=== PATIENT | female | born 2000 | race Hispanic/Latino ===

== ENCOUNTER 2022-10-21 13:58 | Inpatient (IN) | payer OTHER ==
[~2022-10-21 13:58] MED LIST: Bupivacaine 0.25% HCL 30 ML VIAL ONE; Bupivacaine/Epinephrine 0.5% 10 ML VIAL ONE; Lidocaine 2% MPF 10 ML AMP (For Epidural Use) ONE
[2022-10-21 20:40] VITALS: BMI 28.1
[2022-10-21] MEDS ORDERED: Promethazine HCl 25 MG/ML VIAL IM PRN (21:08)
[2022-10-21] MEDS ORDERED: Carboprost 250 MCG/ML AMP IM PRN (21:08)
[2022-10-21] MEDS ORDERED: Methylergonovine 0.2 MG/ML VIAL IM PRN (21:08)
[2022-10-21] MEDS ORDERED: Lidocaine 1% (PF) 30 ML VIAL SC PRN (21:08)
[2022-10-21] MEDS ORDERED: Ondansetron PF 4 MG/2 ML Vial IVP PRN (21:08)
[2022-10-21] MEDS ORDERED: hydrALAZINE 20 MG/ML VIAL SLOW IVP PRN (21:08)
[2022-10-21] MEDS ORDERED: Misoprostol 200 MCG TAB PR PRN (21:08)
[2022-10-21] MEDS ORDERED: NS w/ Oxytocin 30 units 500 ML IV SCH ×2 (21:15)
[2022-10-21 21:37] LABS: Hemoglobin 9.4 g/dL (12.0-15.5); Mean Corpuscular HGB CONC 33.5 g/dL (32.0-36.0); Mean Corpuscular Hemoglobin 26.8 pg (27.0-33.0); Mean Corpuscular Volume 80.1 fl (81.6-98.3); Mean Platelet Volume 11.2 fl (7.4-10.4); Platelet Count 181 10x3/uL (150-450); RBC Distribution Width 13.4 % (11.5-14.5); Red Blood Cell (RBC) Count 3.51 10x6/uL (3.90-5.03); White Blood Cell (WBC) Count 6.2 10x3/uL (3.5-10.5)
[2022-10-21 22:19] LABS: HBSAg Index 0.18 S/CO (0-0.99); Hep B Surf Ag Non-Reactive S/CO (NonReactive)
[2022-10-21 22:20] LABS: Syphilis Antibody Nonreactive (Nonreactive); Syphilis Antibody Index 0.02 S/CO (<1.00 Non-Reactive)
[2022-10-22] MEDS: Lactated Ringer's 1,000 ML IV SCH (07:06)
[2022-10-22] MEDS ORDERED: Fentanyl 2 mcg/Bup 0.1% Cadd 100 ML ONE (10:24)
[2022-10-22] MEDS ORDERED: Naloxone HCl 0.4 mg/ml Vial IVP PRN ×4 (11:27→23:58)
[2022-10-22] MEDS ORDERED: Moisturizing Cream (Eucerin) 113 GM JAR TOP PRN ×2 (11:27→23:58)
[2022-10-22] MEDS ORDERED: Lactated Ringer's 500 ML IV PRN (11:27)
[2022-10-22] MEDS ORDERED: Promethazine HCl 25 MG/ML VIAL IM PRN ×2 (11:27→23:58)
[2022-10-22] MEDS ORDERED: ePHEDrine Sulfate 50 MG/10 ML VIAL SLOW IVP PRN (11:27)
[2022-10-22] MEDS ORDERED: Acetaminophen 325 MG TAB PO PRN (11:27)
[2022-10-22] MEDS ORDERED: Ondansetron PF 4 MG/2 ML Vial IVP PRN ×2 (11:27→23:58)
[2022-10-22] MEDS ORDERED: diphenhydrAMINE 50 MG/ML VIAL IVP PRN ×2 (11:27→23:58)
[2022-10-22] MEDS ORDERED: Fentanyl 2 mcg/Bupivacaine 0.1% Cassette 100 ML EPIDURAL SCH (11:30)
[2022-10-22] MEDS ORDERED: Communication Order-Pharmacy FS SCH ×2 (11:30→23:45)
[2022-10-22] MEDS ORDERED: Dextrose 5%-Lactated Ringers 1,000 ML IV SCH (19:30)
[2022-10-22] MEDS ORDERED: CEFAZOLIN 2 GM VIAL ONE (23:35)
[2022-10-22] MEDS ORDERED: Azithromycin 500 MG VIAL ONE (23:36)
[2022-10-22] MEDS ORDERED: Clindamycin/D5W 900 mg/50 ml Premix Bag ONE (23:38)
[2022-10-22] MEDS ORDERED: Tranexamic Acid 1,000 MG/10 ML VIAL ONE ×2 (23:42→23:54)
[2022-10-22] MEDS ORDERED: Methylergonovine 0.2 MG/ML VIAL ONE (23:42)
[2022-10-22] MEDS ORDERED: Carboprost 250 MCG/ML AMP ONE (23:42)
[2022-10-22] MEDS ORDERED: Misoprostol 200 MCG TAB ONE ×2 (23:42→23:54)
[2022-10-22] MEDS: SODIUM CHLORIDE IVPB SCH (23:46)
[2022-10-22] MEDS: Ampicillin 2 GM in Sodium Chloride 0.9% 100 ML IVPB SCH (23:46)
[2022-10-22] MEDS: GENTAMICIN IVPB SCH (23:46)
[2022-10-22] MEDS: ADMIXTURE FEE IVPB SCH (23:46)
[2022-10-22] MEDS ORDERED: Ondansetron PF 4 MG/2 ML Vial ONE (23:49)
[2022-10-22] MEDS ORDERED: Dexamethasone 4 mg/ml Vial ONE (23:49)
[2022-10-22] MEDS ORDERED: Oxytocin 10 UNITS/ML VIAL ONE (23:50)
[2022-10-22] MEDS ORDERED: Ketorolac Tromethamine 30 MG/ML VIAL ONE (23:50)
[2022-10-22] MEDS ORDERED: Phenylephrine 40 MG/NS 250 ML 250 ML ONE (23:50)
[2022-10-22] MEDS ORDERED: Meperidine HCl/PF 25 MG/ML VIAL SLOW IVP PRN (23:58)
[2022-10-22] MEDS ORDERED: Naloxone HCl 0.4 mg/ml Vial IV PRN (23:58)
[2022-10-22] MEDS ORDERED: Promethazine HCl 25 MG SUPP PR PRN (23:58)
[2022-10-22] MEDS ORDERED: Fentanyl 100 MCG/2 ML VIAL SLOW IVP PRN (23:58)
[2022-10-22] MEDS ORDERED: Ondansetron HCl/PF 4 MG/2 ML Vial IVP PRN (23:58)
[2022-10-23] MEDS ORDERED: Tranexamic Acid 1,000 MG/10 ML VIAL ONE (00:43)
[2022-10-23 01:06] LABS: pH (Cord, venous) 7.304 (7.250-7.350)
[2022-10-23] MEDS ORDERED: Morphine PF 10 MG/10 ML VIAL ONE (01:20)
[2022-10-23 01:37] LABS: Hemoglobin 9.1 g/dL (12.0-15.5)
[2022-10-23] MEDS ORDERED: Lidocaine 1% (PF) 30 ML VIAL ONE (02:03)
[2022-10-23] MEDS: Clindamycin/D5W 600 MG in Premix Bag 1 BAG IVPB SCH ×4 (02:06→16:19)
[2022-10-23] MEDS ORDERED: Lanolin Ointment 7 GM TUBE TOP PRN (04:22)
[2022-10-23] MEDS ORDERED: Bisacodyl 10 MG SUPP PR PRN (04:22)
[2022-10-23] MEDS ORDERED: hydrALAZINE 20 MG/ML VIAL SLOW IVP PRN (04:22)
[2022-10-23] MEDS ORDERED: Simethicone Chewable 80 MG TAB PO PRN (04:22)
[2022-10-23] MEDS ORDERED: Boostrix 0.5 ML (Tdap) VIAL (>/=7 yrs of age) IM ONE (04:22)
[2022-10-23] MEDS ORDERED: Acetaminophen 325 MG TAB PO PRN (04:22)
[2022-10-23] MEDS: Lactated Ringer's 1,000 ML IV SCH (04:26)
[2022-10-23] MEDS: Ampicillin 2 GM in Sodium Chloride 0.9% 100 ML IVPB SCH ×3 (07:36→18:25)
[2022-10-23] MEDS: Ketorolac Tromethamine 30 MG/ML VIAL IVP SCH ×4 (07:36→23:40)
[2022-10-23] MEDS: Prenatal Vitamin 1 TAB PO SCH (10:01)
[2022-10-23] MEDS: Docusate 100 MG CAP PO SCH ×2 (10:02→20:56)
[2022-10-23] MEDS: Ferrous Sulfate 325 MG TAB PO SCH ×2 (10:02→20:56)
[2022-10-23] MEDS ORDERED: HYDROcodone/Acetaminophen 5/325 mg Tablet PO PRN (11:55)
[2022-10-23 18:54] LABS: Hemoglobin 5.9 g/dL (12.0-15.5); MDiff Complete? YES; Mean Corpuscular HGB CONC 32.8 g/dL (32.0-36.0); Mean Corpuscular Hemoglobin 26.1 pg (27.0-33.0); Mean Corpuscular Volume 79.6 fl (81.6-98.3); Mean Platelet Volume 10.9 fl (7.4-10.4); Platelet Count 131 10x3/uL (150-450); RBC Distribution Width 13.8 % (11.5-14.5); Red Blood Cell (RBC) Count 2.26 10x6/uL (3.90-5.03); White Blood Cell (WBC) Count 11.1 10x3/uL (3.5-10.5)
[2022-10-23 19:20] LABS: Band 6 % (5-11); Lymphocytes 5 % (28-48); Metamyelocyte 2 % (0-0); Monocytes 2 % (0-4); Neutrophil 85 % (31-61)
[2022-10-23 19:21] LABS: Hypochromia SLIGHT = 6-15 cells (100X) (0-5/hpf); Microcytosis SLIGHT = 6-15 cells (100X) (0-5/hpf); Platelet Morphology Comment Appears Decreased
[2022-10-23] MEDS: GENTAMICIN IVPB SCH (23:36)
[2022-10-23] MEDS: SODIUM CHLORIDE IVPB SCH (23:36)
[2022-10-23] MEDS: ADMIXTURE FEE IVPB SCH (23:36)
[2022-10-24] MEDS: Ampicillin 2 GM in Sodium Chloride 0.9% 100 ML IVPB SCH (01:10)
[2022-10-24] MEDS: Clindamycin/D5W 600 MG in Premix Bag 1 BAG IVPB SCH (01:35)
[2022-10-24] MEDS: Ibuprofen 800 MG TAB PO SCH ×3 (06:16→21:51)
[2022-10-24] MEDS: Prenatal Vitamin 1 TAB PO SCH (08:24)
[2022-10-24] MEDS: Docusate 100 MG CAP PO SCH ×2 (08:24→21:51)
[2022-10-24] MEDS: Ferrous Sulfate 325 MG TAB PO SCH ×2 (08:24→21:51)
[2022-10-24 10:48] LABS: Hemoglobin 8.9 g/dL (12.0-15.5); Mean Corpuscular HGB CONC 35.3 g/dL (32.0-36.0); Mean Corpuscular Hemoglobin 28.2 pg (27.0-33.0); Mean Corpuscular Volume 79.7 fl (81.6-98.3); Mean Platelet Volume 11.3 fl (7.4-10.4); Platelet Count 146 10x3/uL (150-450); RBC Distribution Width 14.1 % (11.5-14.5); Red Blood Cell (RBC) Count 3.16 10x6/uL (3.90-5.03); White Blood Cell (WBC) Count 15.3 10x3/uL (3.5-10.5)
[2022-10-24 10:49] LABS: MDiff Complete? YES
[2022-10-24 11:20] LABS: Band 26 % (5-11); Lymphocytes 8 % (28-48); Monocytes 2 % (0-4); Neutrophil 62 % (31-61); Reactive Lymphocytes 2 % (0-10)
[2022-10-24 11:22] LABS: Microcytosis SLIGHT = 6-15 cells (100X) (0-5/hpf); Platelet Morphology Comment Appears Adequate
[2022-10-25 04:12] LABS: #Monocytes 0.7 10x3/uL (0.0-1.1); #Neutrophils 11.5 10x3/uL (1.5-8.4); %Basophils 0.1 % (0.0-2.0); %Lymphocytes 10.7 % (18.0-47.0); %Monocytes 5.2 % (0.0-10.0); Hemoglobin 8.2 g/dL (12.0-15.5); Mean Corpuscular HGB CONC 34.6 g/dL (32.0-36.0); Mean Corpuscular Hemoglobin 27.8 pg (27.0-33.0); Mean Corpuscular Volume 80.3 fl (81.6-98.3); Platelet Count 173 10x3/uL (150-450); RBC Distribution Width 14.6 % (11.5-14.5); Red Blood Cell (RBC) Count 2.95 10x6/uL (3.90-5.03); White Blood Cell (WBC) Count 13.9 10x3/uL (3.5-10.5)
[2022-10-25] MEDS: Ibuprofen 800 MG TAB PO SCH ×2 (05:57→13:29)
[2022-10-25] MEDS: Prenatal Vitamin 1 TAB PO SCH (08:26)
[2022-10-25] MEDS: Docusate 100 MG CAP PO SCH (08:26)
[2022-10-25] MEDS: Ferrous Sulfate 325 MG TAB PO SCH (08:26)
[2022-10-25 11:21] VITALS: BP 108/56; TEMP 98.1
== END 2022-10-25 16:55 | disposition home or self-care (01) | DRG 786 ==
LOC: CSHLD 19:56 → CSHPP 10-23 04:21
PROVIDERS: ADMIT Family Medicine; ATTEND Family Medicine
PROC: 3E033VJ Introduction of Other Hormone into Peripheral Vein, Percutaneous Approach (ICD-10-PCS; 2022-10-22)
PROC: 10907ZC Drainage of Amniotic Fluid, Therapeutic from Products of Conception, Via Natural or Artificial Opening (ICD-10-PCS; 2022-10-22)
PROC: 10H07YZ Insertion of Other Device into Products of Conception, Via Natural or Artificial Opening (ICD-10-PCS; 2022-10-22)
PROC: 10D00Z1 Extraction of Products of Conception, Low, Open Approach (ICD-10-PCS; principal; 2022-10-23)
PROC: 30233N1 Transfusion of Nonautologous Red Blood Cells into Peripheral Vein, Percutaneous Approach (ICD-10-PCS; 2022-10-23)
DX: O34.211 Maternal care for low transverse scar from previous cesarean delivery (principal); O41.1230 Chorioamnionitis, third trimester, not applicable or unspecified; D62 Acute posthemorrhagic anemia; O72.1 Other immediate postpartum hemorrhage; O99.43 Diseases of the circulatory system complicating the puerperium; Z20.822 Contact with and (suspected) exposure to COVID-19; O66.0 Obstructed labor due to shoulder dystocia; O76 Abnormality in fetal heart rate and rhythm complicating labor and delivery; O62.1 Secondary uterine inertia; O32.4XX0 Maternal care for high head at term, not applicable or unspecified; Z37.0 Single live birth; O32.8XX0 Maternal care for other malpresentation of fetus, not applicable or unspecified; Z3A.39 39 weeks gestation of pregnancy; O99.02 Anemia complicating childbirth; I95.9 Hypotension, unspecified; E86.1 Hypovolemia; O99.285 Endocrine, nutritional and metabolic diseases complicating the puerperium
CPT/HCPCS: 36415; 36430; 51702; 82805; 85014; 85018; 85025; 85027; 86780; 86850; 86900; 86901; 87340; 88307; J0290; J1100; J1580; J1885; J2274; J2405; J2590; J3490; P9016; S0020; U0003; U0005

== ENCOUNTER 2022-10-30 10:42 | Inpatient (IN) | payer OTHER ==
[2022-10-30] MEDS ORDERED: Cefepime 2 GM VIAL ONE (11:13)
[2022-10-30 11:27] LABS: #Monocytes 0.7 10x3/uL (0.0-1.1); #Neutrophils 7.9 10x3/uL (1.5-8.4); %Basophils 0.3 % (0.0-2.0); %Eosinophils 0.3 % (0.0-6.0); %Lymphocytes 14.3 % (18.0-47.0); %Monocytes 6.9 % (0.0-10.0); %Neutrophils 77.3 % (40.0-75.0); Hemoglobin 10.9 g/dL (12.0-15.5); Mean Corpuscular HGB CONC 33.7 g/dL (32.0-36.0); Mean Corpuscular Hemoglobin 27.7 pg (27.0-33.0); Mean Platelet Volume 9.7 fl (7.4-10.4); Platelet Count 342 10x3/uL (150-450); RBC Distribution Width 14.4 % (11.5-14.5); Red Blood Cell (RBC) Count 3.94 10x6/uL (3.90-5.03); White Blood Cell (WBC) Count 10.2 10x3/uL (3.5-10.5)
[2022-10-30 11:38] LABS: ALT (SGPT) 14 U/L (8-55); AST (SGOT) 9 U/L (5-30); Albumin 3.4 g/dL (3.5-5.0); Alkaline Phosphatase 134 U/L (40-100); Anion Gap 16 mmol/L (10-20); BUN (Urea Nitrogen) 8 mg/dL (8.4-21.0); Bilirubin, Total 0.5 mg/dL (0.2-1.2); Calc. Creatinine Clearance 0 mL/min (70-130); Calcium 9.2 mg/dL (7.8-10.44); Carbon Dioxide 24 mmol/L (22-29); Chloride 107 mmol/L (98-107); Estimated GFR 107; Globulin 3.8 g/dL (2.4-3.5); Glucose 90 mg/dL (70-105); Potassium 2.7 mmol/L (3.5-5.1); Protein, Total 7.2 g/dL (6.0-8.3); Sodium 144 mmol/L (136-145)
[2022-10-30] MEDS ORDERED: Vancomycin 1 GM VIAL ONE (11:55)
[2022-10-30] MEDS ORDERED: Potassium Chloride 20 MEQ TAB ONE (14:02)
[2022-10-30] MEDS ORDERED: Potassium Chloride 20 MEQ/100 ML PREMIX BAG ONE (14:02)
[2022-10-30] MEDS ORDERED: hydrALAZINE 20 MG/ML VIAL SLOW IVP PRN (14:16)
[2022-10-30] MEDS ORDERED: Ibuprofen 800 MG TAB PO PRN (14:24)
[2022-10-30] MEDS: Ampicillin/Sulbactam 3 GM in Sodium Chloride 0.9% 100 ML IVPB SCH ×2 (18:40→23:46)
[2022-10-30] MEDS: Clindamycin/D5W 900 MG in Premix Bag 1 BAG IVPB SCH (21:58)
[2022-10-30] MEDS: Ferrous Sulfate 325 MG TAB PO SCH (23:29)
[2022-10-31 05:06] LABS: #Monocytes 0.6 10x3/uL (0.0-1.1); #Neutrophils 8.7 10x3/uL (1.5-8.4); %Basophils 0.2 % (0.0-2.0); %Eosinophils 0.2 % (0.0-6.0); %Lymphocytes 14.5 % (18.0-47.0); %Monocytes 5.7 % (0.0-10.0); %Neutrophils 78.5 % (40.0-75.0); Hemoglobin 8.8 g/dL (12.0-15.5); Mean Corpuscular HGB CONC 32.7 g/dL (32.0-36.0); Mean Corpuscular Hemoglobin 27.1 pg (27.0-33.0); Mean Corpuscular Volume 82.8 fl (81.6-98.3); Mean Platelet Volume 9.7 fl (7.4-10.4); Platelet Count 308 10x3/uL (150-450); RBC Distribution Width 14.6 % (11.5-14.5); Red Blood Cell (RBC) Count 3.25 10x6/uL (3.90-5.03)
[2022-10-31] MEDS: Clindamycin/D5W 900 MG in Premix Bag 1 BAG IVPB SCH ×3 (05:42→21:29)
[2022-10-31 05:50] LABS: ALT (SGPT) 9 U/L (8-55); AST (SGOT) 8 U/L (5-30); Albumin 2.4 g/dL (3.5-5.0); Alkaline Phosphatase 103 U/L (40-100); Anion Gap 13 mmol/L (10-20); BUN (Urea Nitrogen) 8 mg/dL (8.4-21.0); Bilirubin, Total 0.4 mg/dL (0.2-1.2); Calc. Creatinine Clearance 0 mL/min (70-130); Calcium 7.9 mg/dL (7.8-10.44); Carbon Dioxide 21 mmol/L (22-29); Chloride 112 mmol/L (98-107); Estimated GFR 126; Globulin 2.6 g/dL (2.4-3.5); Glucose 104 mg/dL (70-105); Sodium 143 mmol/L (136-145)
[2022-10-31] MEDS: Ampicillin/Sulbactam 3 GM in Sodium Chloride 0.9% 100 ML IVPB SCH ×4 (06:28→23:40)
[2022-10-31] MEDS ORDERED: Potassium Chloride 20 MEQ TAB PO SCH (07:00)
[2022-10-31] MEDS ORDERED: Potassium Chloride 20 MEQ in Premix Bag 1 BAG IVPB SCH (07:00)
[2022-10-31] MEDS: Ferrous Sulfate 325 MG TAB PO SCH ×2 (08:14→21:29)
[2022-10-31] MEDS ORDERED: Butorphanol Tartrate 1 MG/ML VIAL SLOW IVP PRN (10:31)
[2022-10-31] MEDS: Butorphanol Tartrate 1 MG/ML VIAL ONE ×2 (10:41→10:52)
[2022-10-31] MEDS ORDERED: Lidocaine 2% 6 ML SYR TOP PRN (10:49)
[2022-10-31] MEDS ORDERED: Butorphanol Tartrate 1 MG/ML VIAL SLOW IVP SCH (11:00)
[2022-10-31 12:18] VITALS: BMI 28.1
[2022-10-31] MEDS: Acetaminophen 325 MG TAB PO PRN (16:15)
[2022-11-01] MEDS: Ampicillin/Sulbactam 3 GM in Sodium Chloride 0.9% 100 ML IVPB SCH ×3 (00:10→13:26)
[2022-11-01] MEDS: Acetaminophen 325 MG TAB PO PRN (03:59)
[2022-11-01] MEDS: Clindamycin/D5W 900 MG in Premix Bag 1 BAG IVPB SCH (05:25)
[2022-11-01 05:54] LABS: #Monocytes 0.6 10x3/uL (0.0-1.1); #Neutrophils 5.8 10x3/uL (1.5-8.4); %Basophils 0.3 % (0.0-2.0); %Eosinophils 0.4 % (0.0-6.0); %Lymphocytes 17.7 % (18.0-47.0); %Monocytes 7.1 % (0.0-10.0); %Neutrophils 73.6 % (40.0-75.0); Hemoglobin 8.3 g/dL (12.0-15.5); Mean Corpuscular HGB CONC 33.1 g/dL (32.0-36.0); Mean Corpuscular Hemoglobin 27.3 pg (27.0-33.0); Mean Corpuscular Volume 82.6 fl (81.6-98.3); Mean Platelet Volume 10.1 fl (7.4-10.4); Platelet Count 300 10x3/uL (150-450); RBC Distribution Width 14.6 % (11.5-14.5); Red Blood Cell (RBC) Count 3.04 10x6/uL (3.90-5.03); White Blood Cell (WBC) Count 7.8 10x3/uL (3.5-10.5)
[2022-11-01 06:09] LABS: Anion Gap 14 mmol/L (10-20); BUN (Urea Nitrogen) 10 mg/dL (8.4-21.0); Calc. Creatinine Clearance 156 mL/min (70-130); Calcium 8.1 mg/dL (7.8-10.44); Carbon Dioxide 20 mmol/L (22-29); Chloride 111 mmol/L (98-107); Estimated GFR 129; Glucose 98 mg/dL (70-105); Sodium 142 mmol/L (136-145)
[2022-11-01] MEDS ORDERED: Potassium Chloride 20 MEQ in Premix Bag 1 BAG IVPB SCH (07:30)
[2022-11-01] MEDS ORDERED: Potassium Chloride 20 MEQ TAB PO SCH ×2 (07:30→08:00)
[2022-11-01] MEDS ORDERED: Potassium Bicarbonate/Cit Ac 20 MEQ TAB PO SCH (08:45)
[2022-11-01] MEDS: Ferrous Sulfate 325 MG TAB PO SCH (08:49)
[2022-11-01 15:25] VITALS: BP 121/78; TEMP 98.7
== END 2022-11-01 14:45 | disposition home or self-care (01) | DRG 769 ==
LOC: CSHERS 10:42 → CSHPP 17:47 → OBSVTOIN 17:48
PROVIDERS: ADMIT Family Medicine; ATTEND Family Medicine
PROC: 0JD80ZZ Extraction of Abdomen Subcutaneous Tissue and Fascia, Open Approach (ICD-10-PCS; principal; 2022-10-31)
DX: O86.02 Infection of obstetric surgical wound, deep incisional site (principal); E87.6 Hypokalemia; D64.9 Anemia, unspecified; F41.9 Anxiety disorder, unspecified; O99.345 Other mental disorders complicating the puerperium; F53.0 Postpartum depression; O99.285 Endocrine, nutritional and metabolic diseases complicating the puerperium; O90.81 Anemia of the puerperium; B95.62 Methicillin resistant Staphylococcus aureus infection as the cause of diseases classified elsewhere; O90.0 Disruption of cesarean delivery wound
CPT/HCPCS: 36415; 76705; 80048; 80053; 83605; 85025; 87070; 87205; 96365; 96366; 96367; 97139; G0378; J0295; J0595; J0692; J3370; J3480; J3490

== ENCOUNTER 2022-11-03 14:26 | Emergency (ER) | payer OTHER ==
[2022-11-03] MEDS ORDERED: Morphine 4 MG/ML VIAL ONE (15:21)
[2022-11-03] MEDS ORDERED: Lidocaine 4% PF 5 ML AMP TOP SCH (16:00)
[2022-11-03] MEDS ORDERED: Lidocaine 2% 6 ML SYR TOP SCH (16:15)
[2022-11-03] MEDS ORDERED: Butorphanol Tartrate 1 MG/ML VIAL IM SCH (16:45)
== END 2022-11-03 17:20 | disposition home or self-care (01) ==
LOC: CSHERS 14:26
DX: T81.40XA Infection following a procedure, unspecified, initial encounter (principal)
CPT/HCPCS: 96372; 99282; J0595; J2270

== ENCOUNTER 2022-11-07 14:18 | Outpatient (CLI) | payer OTHER | END 2022-11-07 14:19 | disposition home or self-care (01) | LOC: CSHWCC 14:18 | PROVIDERS: ATTEND Nurse Practitioner Family | DX: T81.89XD Other complications of procedures, not elsewhere classified, subsequent encounter (principal) ==

== ENCOUNTER 2022-11-12 15:20 | Outpatient (CLI) | payer OTHER | END 2022-11-12 15:21 | disposition home or self-care (01) | LOC: CSHWCC 15:20 | PROVIDERS: ATTEND Nurse Practitioner Family | DX: T81.89XD Other complications of procedures, not elsewhere classified, subsequent encounter (principal) ==

== ENCOUNTER 2022-11-19 10:48 | Outpatient (CLI) | payer OTHER | END 2022-11-19 10:49 | disposition home or self-care (01) | LOC: CSHWCC 10:48 | PROVIDERS: ATTEND Nurse Practitioner Family | DX: T81.89XD Other complications of procedures, not elsewhere classified, subsequent encounter (principal) | CPT/HCPCS: 97605 ==

== ENCOUNTER 2022-11-26 11:17 | Outpatient (CLI) | payer OTHER | END 2022-11-26 11:18 | disposition home or self-care (01) | LOC: CSHWCC 11:17 | PROVIDERS: ATTEND Nurse Practitioner Family | DX: T81.89XD Other complications of procedures, not elsewhere classified, subsequent encounter (principal) | CPT/HCPCS: 99213; G0463 ==

== ENCOUNTER 2022-12-02 14:04 | Outpatient (CLI) | payer OTHER | END 2022-12-02 14:05 | disposition home or self-care (01) | LOC: CSHWCC 14:04 | PROVIDERS: ATTEND Nurse Practitioner Family | DX: T81.89XD Other complications of procedures, not elsewhere classified, subsequent encounter (principal) | CPT/HCPCS: 99213; G0463 ==

== ENCOUNTER 2022-12-31 08:18 | Outpatient (CLI) | payer OTHER | END 2022-12-31 08:19 | disposition home or self-care (01) | LOC: CSHWCC 08:18 | PROVIDERS: ATTEND Nurse Practitioner Family | DX: T81.89XD Other complications of procedures, not elsewhere classified, subsequent encounter (principal) | CPT/HCPCS: 17250 ==

== ENCOUNTER 2023-01-07 13:02 | Outpatient (CLI) | payer OTHER | END 2023-01-07 13:03 | disposition home or self-care (01) | LOC: CSHWCC 13:02 | PROVIDERS: ATTEND Nurse Practitioner Family | DX: T81.89XD Other complications of procedures, not elsewhere classified, subsequent encounter (principal) | CPT/HCPCS: 99212; G0463 ==